=== PATIENT | male | born 1990 | race Caucasian/White ===

== ENCOUNTER 2020-04-09 16:07 | Emergency (ER) | payer OTHER, SELFPAY ==
--- NOTE | 2020-04-09 16:41 | RAD ---
EXAM: Single view of the chest HISTORY: Cough and chest pain COMPARISON: None FINDINGS: Single view of the chest shows a normal sized cardiomediastinal silhouette. There is no therese dence of consolidation, mass, or pleural effusion. No acute osseous abnormality. IMPRESSION: No evidence of acute cardiopulmonary disease
[2020-04-09 17:08] LABS: Hemoglobin 15.9 g/dL (14.0-18.0); Mean Corpuscular Hemoglobin 30.5 pg (27.0-31.0); Mean Platelet Volume 7.5 fL (7.4-10.4); Platelet Count 300 thou/uL (130-400); RBC Distribution Width 11.6 % (11.5-14.5); Red Blood Cell (RBC) Count 5.22 mill/uL (4.70-6.10); White Blood Cell (WBC) Count 6.4 thou/uL (4.8-10.8)
[2020-04-09 17:32] LABS: ALT (SGPT) 26 U/L (8-55); AST (SGOT) 17 U/L (5-34); Albumin 4.8 g/dL (3.5-5.0); Alkaline Phosphatase 73 U/L (40-110); Anion Gap 14 mmol/L (10-20); BUN (Urea Nitrogen) 9 mg/dL (8.9-20.6); Bilirubin, Total 1.4 mg/dL (0.2-1.2); Calc. Creatinine Clearance 0 mL/min (70-130); Calcium 9.2 mg/dL (7.8-10.44); Carbon Dioxide 23 mmol/L (22-29); Chloride 105 mmol/L (98-107); Estimated GFR-MDRD Greater than 90; Glucose 82 mg/dL (70-105); Potassium 3.5 mmol/L (3.5-5.1); Protein, Total 7.8 g/dL (6.0-8.3); Sodium 138 mmol/L (136-145)
[2020-04-09 17:38] LABS: Band 1 % (5-11); Eosinophils 1 % (0-10); Lymphocytes 40 % (21-51); MDiff Complete? YES; Monocytes 10 % (0-10); Neutrophil 37 % (42-75); Platelet Morphology Comment Appears Adequate; RBC Morphology Normal; Reactive Lymphocytes 10 % (0-10)
[2020-04-09] MEDS ORDERED: Ondansetron ODT 4 MG TAB ONE (18:57)
[2020-04-09] MEDS ORDERED: Dexamethasone 10 MG/ML VIAL ONE (18:57)
[2020-04-10 12:55] LABS: SARS-CoV-2 MS2 Positive; SARS-CoV-2 N Gene Negative; SARS-CoV-2 S Gene Negative; SARS-CoV-2 by NAA Not Detected (NotDetected); SARS-CoV-2 orf1ab Negative
== END 2020-04-09 20:02 | disposition home or self-care (01) ==
LOC: ERS 16:07
DX: R07.9 Chest pain, unspecified (principal); R50.9 Fever, unspecified; Z20.828 Contact with and (suspected) exposure to other viral communicable diseases
CPT/HCPCS: 36415; 71045; 80053; 84484; 85025; 85379; 87635; 93005; 94760; J1100; Q0162; U0003

== ENCOUNTER 2020-04-21 00:30 | Emergency (ER) | payer SELFPAY ==
[2020-04-21] MEDS ORDERED: Lidocaine 1% PF 5 ML VIAL ONE ×3 (00:48→02:20)
== END 2020-04-21 03:15 ==
LOC: ERS 00:30
DX: S61.512A Laceration without foreign body of left wrist, initial encounter (principal); F17.210 Nicotine dependence, cigarettes, uncomplicated; X78.1XXA Intentional self-harm by knife, initial encounter
CPT/HCPCS: 12007

== ENCOUNTER 2021-04-21 11:54 | Emergency (ER) | payer SELFPAY | END 2021-04-21 14:18 | disposition left against medical advice (07) | LOC: ERS 11:54 | DX: B34.9 Viral infection, unspecified (principal) | CPT/HCPCS: 99282 ==

== ENCOUNTER 2021-05-11 19:06 | Emergency (ER) | payer SELFPAY | END 2021-05-11 20:19 | disposition home or self-care (01) | LOC: ERS 19:06 | DX: M76.32 Iliotibial band syndrome, left leg (principal); J45.909 Unspecified asthma, uncomplicated; F17.290 Nicotine dependence, other tobacco product, uncomplicated; Z79.899 Other long term (current) drug therapy ==

== ENCOUNTER 2022-04-22 17:42 | Emergency (ER) | payer OTHER, SELFPAY ==
[2022-04-22] MEDS ORDERED: Acetaminophen 500 MG TAB ONE (18:06)
[2022-04-22 19:33] LABS: SARS-CoV-2 NAA Rapid Test Not Detected (NotDetected)
== END 2022-04-22 18:15 | disposition home or self-care (01) ==
LOC: ERS 17:42
DX: B34.9 Viral infection, unspecified (principal); Z20.822 Contact with and (suspected) exposure to COVID-19
CPT/HCPCS: 99283

== ENCOUNTER 2022-11-19 15:25 | Emergency (ER) | payer OTHER, SELFPAY ==
[2022-11-19] MEDS ORDERED: Cyclobenzaprine 10 MG TAB ONE (15:49)
[2022-11-19] MEDS ORDERED: Dexameth. Sod Phosp. 10 MG/ML (CHEMO USE ONLY) ONE (15:49)
== END 2022-11-19 17:05 | disposition home or self-care (01) ==
LOC: ERS 15:25
DX: S39.012A Strain of muscle, fascia and tendon of lower back, initial encounter (principal); M54.41 Lumbago with sciatica, right side
CPT/HCPCS: 96372; 99283; J1100

== ENCOUNTER 2023-06-03 13:20 | Emergency (ER) | payer OTHER, SELFPAY | END 2023-06-03 14:43 | disposition home or self-care (01) | LOC: ERS 13:20 | DX: M62.838 Other muscle spasm (principal); F17.290 Nicotine dependence, other tobacco product, uncomplicated | CPT/HCPCS: 99283 ==

== ENCOUNTER 2023-06-15 08:45 | Emergency (ER) | payer SELFPAY ==
[2023-06-15] MEDS ORDERED: Acetaminophen 500 MG TAB ONE (09:55)
== END 2023-06-15 10:28 | disposition home or self-care (01) ==
LOC: ERS 08:45
DX: M54.6 Pain in thoracic spine (principal); F17.290 Nicotine dependence, other tobacco product, uncomplicated
CPT/HCPCS: 99283

== ENCOUNTER 2024-03-24 07:27 | Day surgery (SDC) | payer BC ==
[2024-03-10 10:18] VITALS: BMI 30.2
[2024-03-24] MEDS ORDERED: Lidocaine 1% PF 5 ML VIAL ONE (08:05)
[2024-03-24] MEDS ORDERED: PROPOFOL 40 ML ONE (08:05)
[2024-03-24] MEDS ORDERED: fentaNYL PF 100 MCG/2 ML SYRINGE ONE ×2 (08:05→10:49)
[2024-03-24] MEDS ORDERED: Bupivacaine 0.25% HCL 30 ML VIAL ONE (08:21)
[2024-03-24] MEDS ORDERED: Bacitracin Zinc Ointment 30 gm TUBE ONE (08:21)
[2024-03-24] MEDS ORDERED: Sodium Chloride 0.9% 100 ML ONE (08:36)
[2024-03-24] MEDS ORDERED: CEFAZOLIN 2 GM VIAL ONE (08:36)
[2024-03-24] MEDS ORDERED: Ondansetron PF 4 MG/2 ML Vial ONE (08:55)
[2024-03-24] MEDS ORDERED: Dexamethasone 4 mg/ml Vial ONE (08:55)
[2024-03-24] MEDS ORDERED: fentaNYL 50 mcg/mL 1 mL Vial ONE (09:57)
[2024-03-24] MEDS ORDERED: Meperidine HCl/PF 25 MG (1 mL) VIAL ONE (10:44)
[2024-03-24] MEDS ORDERED: HYDROmorphone 0.5 MG/0.5 ML SYRINGE ONE ×3 (10:46→11:02)
== END 2024-03-24 12:29 | disposition home or self-care (01) ==
LOC: SDC 07:27 → EDBD 09:30 → SDC 12:29
PROVIDERS: ATTEND Urology
PROC: 0VTTXZZ Resection of Prepuce, External Approach (ICD-10-PCS; principal; 2024-03-24)
DX: D29.0 Benign neoplasm of penis (principal); N47.1 Phimosis; B37.49 Other urogenital candidiasis; G43.909 Migraine, unspecified, not intractable, without status migrainosus; F41.9 Anxiety disorder, unspecified; F32.A Depression, unspecified; Z88.0 Allergy status to penicillin; Z88.6 Allergy status to analgesic agent; Z88.8 Allergy status to other drugs, medicaments and biological substances; Z88.2 Allergy status to sulfonamides; F17.290 Nicotine dependence, other tobacco product, uncomplicated; Z79.899 Other long term (current) drug therapy; Z90.49 Acquired absence of other specified parts of digestive tract; Z98.890 Other specified postprocedural states
CPT/HCPCS: 88304; 88305; J0665; J1100; J1170; J2175; J2405; J2704; J3010

== ENCOUNTER 2024-05-30 13:05 | Emergency (ER) | payer BC ==
[2024-05-30 13:36] LABS: #Basophils Less than 0.03 10x3/uL (0.0-0.2); %Basophils 0.4 % (0.0-1.0); %Eosinophils 1.3 % (0.0-10.0); %Lymphocytes 47.6 % (21.0-51.0); %Monocytes 7.8 % (0.0-10.0); %Neutrophils 42.9 % (42.0-75.0); Hematocrit 38.5 % (42.0-52.0); Hemoglobin 12.9 g/dL (14.0-18.0); Mean Corpuscular HGB CONC 33.5 g/dL (32.0-36.0); Mean Corpuscular Hemoglobin 29.9 pg (27.0-31.0); Mean Corpuscular Volume 89.1 fL (78.0-98.0); Mean Platelet Volume 9.7 fL (7.4-10.4); Platelet Count 235 10x3/uL (130-400); RBC Distribution Width 12.7 % (11.5-14.5); Red Blood Cell (RBC) Count 4.32 mill/uL (4.70-6.10)
[2024-05-30 14:03] LABS: ALT (SGPT) 100 U/L (8-55); AST (SGOT) 55 U/L (5-34); Albumin 4.1 g/dL (3.5-5.0); Alkaline Phosphatase 83 U/L (40-110); Anion Gap 15 mmol/L (10-20); BUN (Urea Nitrogen) 12 mg/dL (8.9-20.6); Bilirubin, Total 0.7 mg/dL (0.2-1.2); Calc. Creatinine Clearance 0 mL/min (70-130); Carbon Dioxide 24 mmol/L (22-29); Chloride 106 mmol/L (98-107); Estimated GFR 95; Globulin 3.4 g/dL (2.4-3.5); Glucose 107 mg/dL (70-105); Lipase 24 U/L (8-78); Potassium 3.3 mmol/L (3.5-5.1); Protein, Total 7.5 g/dL (6.0-8.3); Sodium 142 mmol/L (136-145)
[2024-05-30 16:09] LABS: Bacteria/HPF None Seen HPF (None Seen); Bilirubin Negative (Negative); Blood, Urine Negative (Negative); CAUTI Indications for Culture Acute Hematuria; Clarity Clear (Clear); Glucose, Urine (Dipstick) Normal (Negative); Ketone, Urine Negative (Negative); Leukocyte Negative Leu/uL (Negative); Nitrite Negative (Negative); Protein, Urine (Dipstick) Negative (Neg-Trace); RBC/HPF 0-3 HPF (0-3); Specific Gravity, Urine 1.035 (1.002-1.036); Urobilinogen Normal mg/dL (Less than 2); WBC/HPF 0-3 HPF (0-3); pH, Urine 5.5 (5.0-9.0)
[2024-05-30 16:11] LABS: Urine Culture Reflex No No
[2024-05-30] MEDS ORDERED: HYDROmorphone 0.5 MG/0.5 ML SYRINGE ONE (16:31)
[2024-05-30] MEDS ORDERED: Ondansetron PF 4 MG/2 ML Vial ONE (16:31)
== END 2024-05-30 18:12 | disposition home or self-care (01) ==
LOC: ERS 13:05
DX: K59.00 Constipation, unspecified (principal); Z55.6 Problems related to health literacy
CPT/HCPCS: 36415; 74176; 80053; 81001; 83690; 85025; 87086; 96374; 96375; J1170; J2405